=== PATIENT | female | born 1990 ===

== ENCOUNTER 2018-09-19 09:27 | Inpatient (IN) | payer OTHER ==
[~2018-09-19] VITALS: Ht 157.6 cm; Wt 89.1 kg
[2018-10-09] VITALS (17 sets, daily range): BP systolic 100–128; BP diastolic 51–70; PULSE 87–113; TEMP 97.6
[2018-10-09] MEDS ORDERED: PRENATAL MVI (06:56)
[2018-10-09] MEDS ORDERED: OSCAL 500 TAB500 MG PO (06:57)
[2018-10-09 07:09] LABS: BASO % 0.2 % (0.0-2.0); EOS # 0.1 (0.0-0.7); EOS % 0.7 % (0-4.0); GRAN # 8.5 (1.4-6.5); GRAN % 71.4 % (42.2-75.2); HEMATOCRIT 38.6 % (37.0-47.0); LYMPH # 2.5 (1.2-3.4); LYMPH % 20.8 % (20.0-51.0); MEAN CELL VOLUME 88 fl (80.0-100.0); MEAN CORPUSCULAR HEMOGLOBIN 30 pg (27.0-31.0); MEAN CORPUSCULAR HGB CONC 34 g/dl (33.0-37.0); MEAN PLATELET VOLUME 10.6 fl (7.4-10.4); MONO # 0.8 (0.1-0.6); MONO % 6.5 % (1.7-9.3); PLATELET COUNT 313 K/mm3 (130-400); REDCELL DISTRIBUTION WIDTH-CV 14.2 % (11.5-14.5)
[2018-10-10 01:45] VITALS: BP 127/80; PULSE 94
[2018-10-10 07:29] LABS: HEMATOCRIT 34.7 % (37.0-47.0); HEMOGLOBIN 11.5 g/dl (12.5-16.0)
[2018-10-10 07:30] VITALS: BP 117/73; PULSE 93; TEMP 98.3
[2018-10-10] MEDS ORDERED: PERCOCET 325 MG1 TA2 PO (10:16)
[2018-10-10] MEDS ORDERED: IBU600 MG PO (10:16)
[2018-10-10 16:15] VITALS: BP 116/76; PULSE 96; TEMP 98.4
[2018-10-10 20:25] VITALS: BP 118/73; PULSE 100; TEMP 98.1
[2018-10-11 10:27] VITALS: BP 118/84; PULSE 90; TEMP 97.8
[2018-10-11 16:15] VITALS: BP 123/73; PULSE 86; TEMP 97.8
[2018-10-11 19:20] VITALS: BP 120/90; PULSE 87; TEMP 989.5
[2018-10-11 20:00] VITALS: BP 110/65; PULSE 95; TEMP 98.5
[2018-10-12 08:13] VITALS: BP 126/81; PULSE 87; TEMP 98.6
[2018-10-12 16:30] VITALS: BP 126/78; PULSE 78; TEMP 97.8
[2018-10-12 20:36] VITALS: BP 116/89; PULSE 88; TEMP 98.5
[2018-10-13 07:35] VITALS: BP 130/88; PULSE 88; TEMP 97.9
== END 2018-10-13 17:20 | disposition home or self-care (01) | DRG 788 ==
LOC: OB 10-09 05:43 → LDR 10-09 09:26 → OB 10-13 17:20
PROVIDERS: Obstetrics & Gynecology
PROC: 10D00Z1 Extraction of Products of Conception, Low, Open Approach (ICD-10-PCS; principal; 2018-10-09)
DX: O34.211 Maternal care for low transverse scar from previous cesarean delivery (principal); Z3A.39 39 weeks gestation of pregnancy; O99.824 Streptococcus B carrier state complicating childbirth
CPT/HCPCS: J0690; J1885; J2250; J2370; J2405; J2590; J3010; J7120